=== PATIENT | male | born 1980 | race Caucasian/White ===

== ENCOUNTER 2022-10-13 12:34 | Inpatient (IN) | payer OTHER ==
[2022-10-13 13:47] VITALS: BMI 26.5
[2022-10-13] MEDS ORDERED: IBUPROFEN 600 MG TABLET (FP) PO PRN (15:10)
[2022-10-13] MEDS ORDERED: POLYETHYLENE GLYCOL (HEALTHYLAX) 3350 17 GM PACKET PO PRN (15:10)
[2022-10-13] MEDS ORDERED: MAG HYDROX/AL HYDROX/SIMETH 30 ML UNIT-DOSE CUP PO PRN (15:10)
[2022-10-13] MEDS ORDERED: MAGNESIUM HYDROX 2400MG/30ML ORAL SUSPENSION 30 ML CUP PO PRN (15:10)
[2022-10-13] MEDS ORDERED: METHOCARBAMOL 500 MG TABLET PO PRN (15:10)
[2022-10-13] MEDS ORDERED: IBUPROFEN 400 MG TABLET (FP) PO PRN (15:10)
[2022-10-13] MEDS ORDERED: LOPERAMIDE HCL 2 MG CAPSULE PO PRN (15:10)
[2022-10-13] MEDS ORDERED: BISMUTH SUBSALICYLATE 262 MG/15 ML BTL PO PRN (15:10)
[2022-10-13] MEDS ORDERED: ACETAMINOPHEN 325 MG TABLET (FP) PO PRN ×2 (15:10)
[2022-10-13] MEDS ORDERED: NALOXONE HCL (KLOXXADO) 8 MG SPRAY NS PRN (15:10)
[2022-10-13] MEDS ORDERED: BENZOCAINE/MENTHOL (CHLORASEPTIC ) LOZENGE MM PRN (15:10)
[2022-10-13] MEDS ORDERED: ONDANSETRON *ODT* 4 MG TABLET SL PRN (15:10)
[2022-10-13] MEDS ORDERED: DICYCLOMINE HCL 10 MG CAPSULE PO PRN (15:10)
[2022-10-13] MEDS ORDERED: MELATONIN 5 MG TABLETS PO SCH (22:00)
[2022-10-13] MEDS ORDERED: THIAMINE HCL 100 MG TABLET (FP) PO SCH (22:00)
[2022-10-14 11:58] LABS: HEMATOCRIT 44.4 % (35.4-49); HEMOGLOBIN 14.6 GM/dL (11.7-16.9); MCH 29.9 pg (25.7-33.7); MCHC 32.9 g/dl (32.0-35.9); MEAN CELL VOLUME 90.7 fl (80-96); MEAN PLT VOLUME 9.6 fl (7.5-11.1); PLATELET COUNT 186 10^3/uL (134-434); RBC 4.89 M/mm3 (4.00-5.60); RDW 13.7 % (11.9-15.9); WHITE BLOOD COUNT 5.2 K/mm3 (4.0-10.0)
[2022-10-14 12:01] LABS: CALCIUM 8.7 mg/dL (8.5-10.1)
[2022-10-14 12:02] LABS: ALBUMIN 3.6 g/dl (3.4-5.0); BLOOD UREA NITROGEN 12.4 mg/dL (7-18)
[2022-10-14 12:05] LABS: CREATININE 1.2 mg/dL (0.55-1.3)
[2022-10-14 12:06] LABS: BILIRUBIN,TOTAL 0.7 mg/dL (0.2-1)
[2022-10-14 12:07] LABS: TOT PROT 6.8 g/dl (6.4-8.2)
[2022-10-14 13:14] VITALS: BP 132/85; PULSE 84; RESP 16; TEMP 96.9
== END 2022-10-14 14:10 | disposition home or self-care (01) | DRG 774 ==
LOC: YASAS 12:34 → Y3N 15:48
PROVIDERS: ADMIT Allergy & Immunology; ATTEND Family Medicine
PROC: HZ2ZZZZ Detoxification Services for Substance Abuse Treatment (ICD-10-PCS; principal; 2022-10-13)
DX: F14.20 Cocaine dependence, uncomplicated (principal); F10.20 Alcohol dependence, uncomplicated
CPT/HCPCS: 36415; 80053; 85027; 86780; C9803-CS; U0003; U0005

== ENCOUNTER 2022-10-14 14:18 | Inpatient (IN) | payer OTHER ==
[2022-10-14] MEDS ORDERED: BENZOCAINE/MENTHOL (CHLORASEPTIC ) LOZENGE MM PRN (14:54)
[2022-10-14] MEDS ORDERED: ACETAMINOPHEN 325 MG TABLET (FP) PO PRN (14:54)
[2022-10-14] MEDS ORDERED: LOPERAMIDE HCL 2 MG CAPSULE PO PRN (14:54)
[2022-10-14] MEDS ORDERED: IBUPROFEN 400 MG TABLET (FP) PO PRN (14:54)
[2022-10-14] MEDS ORDERED: hydrOXYzine PAMOATE 25 MG CAPSULE (FP) PO PRN (14:54)
[2022-10-14] MEDS ORDERED: POLYETHYLENE GLYCOL (HEALTHYLAX) 3350 17 GM PACKET PO PRN (14:54)
[2022-10-14] MEDS ORDERED: P-EPHED 60MG/TRIPROLIDI 2.5MG TABLET PO PRN (14:54)
[2022-10-14] MEDS ORDERED: MAGNESIUM HYDROX 2400MG/30ML ORAL SUSPENSION 30 ML CUP PO PRN (14:54)
[2022-10-14] MEDS ORDERED: NICOTINE 10 MG CARTRIDGE (INHALER) IH PRN (14:54)
[2022-10-14] MEDS ORDERED: guaiFENesin 200 MG/10 ML 10 ML UNIT-DOSE CUPS PO PRN (14:54)
[2022-10-14] MEDS: THIAMINE HCL 100 MG TABLET (FP) PO SCH (21:33)
[2022-10-14] MEDS: MELATONIN 5 MG TABLETS PO SCH (21:33)
[2022-10-15] MEDS: PRENATAL VITAMINS W/ FOLIC ACID TABLET (FP) PO SCH (09:56)
[2022-10-15] MEDS: NICOTINE 7 MG/24 HOURS TOPICAL PATCH TD SCH (09:57)
[2022-10-15] MEDS: THIAMINE HCL 100 MG TABLET (FP) PO SCH (21:13)
[2022-10-15] MEDS: MELATONIN 5 MG TABLETS PO SCH (21:14)
[2022-10-16] MEDS: PRENATAL VITAMINS W/ FOLIC ACID TABLET (FP) PO SCH (09:28)
[2022-10-16] MEDS: NICOTINE 7 MG/24 HOURS TOPICAL PATCH TD SCH (09:28)
[2022-10-16] MEDS: THIAMINE HCL 100 MG TABLET (FP) PO SCH (21:26)
[2022-10-16] MEDS: MELATONIN 5 MG TABLETS PO SCH (21:26)
[2022-10-17] MEDS ORDERED: NICOTINE 7 MG/24 HOURS TOPICAL PATCH TD PRN (09:28)
[2022-10-17] MEDS: PRENATAL VITAMINS W/ FOLIC ACID TABLET (FP) PO SCH (10:19)
[2022-10-17 15:02] LABS: HIV INTERPRETATION NEGATIVE (NEGATIVE)
[2022-10-17] MEDS ORDERED: DOCUSATE SODIUM 100 MG CAPSULE (FP) PO PRN (15:02)
[2022-10-17] MEDS: HYDROCORTISONE 2.5% TOPICAL CREAM 30 GM TUBE RC SCH (21:41)
[2022-10-17] MEDS: MELATONIN 5 MG TABLETS PO SCH (21:42)
[2022-10-17] MEDS: THIAMINE HCL 100 MG TABLET (FP) PO SCH (21:42)
[2022-10-18] MEDS: PRENATAL VITAMINS W/ FOLIC ACID TABLET (FP) PO SCH (09:49)
[2022-10-18] MEDS: HYDROCORTISONE 2.5% TOPICAL CREAM 30 GM TUBE RC SCH (09:50)
[2022-10-18] MEDS: MELATONIN 5 MG TABLETS PO SCH (22:27)
[2022-10-18] MEDS: THIAMINE HCL 100 MG TABLET (FP) PO SCH (22:27)
[2022-10-19] MEDS: PRENATAL VITAMINS W/ FOLIC ACID TABLET (FP) PO SCH (09:59)
[2022-10-19] MEDS: HYDROCORTISONE 2.5% TOPICAL CREAM 30 GM TUBE RC SCH (09:59)
[2022-10-19] MEDS: THIAMINE HCL 100 MG TABLET (FP) PO SCH (22:11)
[2022-10-19] MEDS: MELATONIN 5 MG TABLETS PO SCH (22:11)
[2022-10-20] MEDS: PRENATAL VITAMINS W/ FOLIC ACID TABLET (FP) PO SCH (09:30)
[2022-10-20] MEDS: HYDROCORTISONE 2.5% TOPICAL CREAM 30 GM TUBE RC SCH (09:31)
[2022-10-20] MEDS: MAG HYDROX/AL HYDROX/SIMETH 30 ML UNIT-DOSE CUP PO PRN (19:09)
[2022-10-20] MEDS: THIAMINE HCL 100 MG TABLET (FP) PO SCH (21:32)
[2022-10-20] MEDS: MELATONIN 5 MG TABLETS PO SCH (21:32)
[2022-10-21] MEDS: HYDROCORTISONE 2.5% TOPICAL CREAM 30 GM TUBE RC SCH (09:58)
[2022-10-21] MEDS: PRENATAL VITAMINS W/ FOLIC ACID TABLET (FP) PO SCH (09:58)
[2022-10-21] MEDS: THIAMINE HCL 100 MG TABLET (FP) PO SCH (21:31)
[2022-10-21] MEDS: MELATONIN 5 MG TABLETS PO SCH (21:31)
[2022-10-21] MEDS: MAG HYDROX/AL HYDROX/SIMETH 30 ML UNIT-DOSE CUP PO PRN (21:33)
[2022-10-22] MEDS: PRENATAL VITAMINS W/ FOLIC ACID TABLET (FP) PO SCH (09:53)
[2022-10-22] MEDS: HYDROCORTISONE 2.5% TOPICAL CREAM 30 GM TUBE RC SCH (09:53)
[2022-10-22] MEDS: MELATONIN 5 MG TABLETS PO SCH (22:18)
[2022-10-22] MEDS: THIAMINE HCL 100 MG TABLET (FP) PO SCH (22:18)
[2022-10-23] MEDS: PRENATAL VITAMINS W/ FOLIC ACID TABLET (FP) PO SCH (10:13)
[2022-10-23] MEDS: HYDROCORTISONE 2.5% TOPICAL CREAM 30 GM TUBE RC SCH (10:13)
[2022-10-23] MEDS: THIAMINE HCL 100 MG TABLET (FP) PO SCH (22:39)
[2022-10-23] MEDS: MELATONIN 5 MG TABLETS PO SCH (22:39)
[2022-10-24] MEDS: HYDROCORTISONE 2.5% TOPICAL CREAM 30 GM TUBE RC SCH (09:51)
[2022-10-24] MEDS: PRENATAL VITAMINS W/ FOLIC ACID TABLET (FP) PO SCH (09:52)
[2022-10-24] MEDS: THIAMINE HCL 100 MG TABLET (FP) PO SCH (21:30)
[2022-10-24] MEDS: MELATONIN 5 MG TABLETS PO SCH (21:30)
[2022-10-25] MEDS: PRENATAL VITAMINS W/ FOLIC ACID TABLET (FP) PO SCH (09:49)
[2022-10-25] MEDS: HYDROCORTISONE 2.5% TOPICAL CREAM 30 GM TUBE RC SCH (10:29)
[2022-10-25] MEDS: THIAMINE HCL 100 MG TABLET (FP) PO SCH (21:27)
[2022-10-25] MEDS: MELATONIN 5 MG TABLETS PO SCH (21:27)
[2022-10-26] MEDS: PRENATAL VITAMINS W/ FOLIC ACID TABLET (FP) PO SCH (09:51)
[2022-10-26] MEDS: HYDROCORTISONE 2.5% TOPICAL CREAM 30 GM TUBE RC SCH (09:52)
[2022-10-26] MEDS: MELATONIN 5 MG TABLETS PO SCH (21:18)
[2022-10-26] MEDS: THIAMINE HCL 100 MG TABLET (FP) PO SCH (21:18)
[2022-10-27] MEDS: HYDROCORTISONE 2.5% TOPICAL CREAM 30 GM TUBE RC SCH (09:37)
[2022-10-27] MEDS: PRENATAL VITAMINS W/ FOLIC ACID TABLET (FP) PO SCH (09:37)
[2022-10-27] MEDS: MELATONIN 5 MG TABLETS PO SCH (21:26)
[2022-10-27] MEDS: THIAMINE HCL 100 MG TABLET (FP) PO SCH (21:26)
[2022-10-28] MEDS: HYDROCORTISONE 2.5% TOPICAL CREAM 30 GM TUBE RC SCH (10:05)
[2022-10-28] MEDS: PRENATAL VITAMINS W/ FOLIC ACID TABLET (FP) PO SCH (10:05)
[2022-10-28] MEDS: THIAMINE HCL 100 MG TABLET (FP) PO SCH (21:56)
[2022-10-28] MEDS: MELATONIN 5 MG TABLETS PO SCH (21:56)
[2022-10-29] MEDS: PRENATAL VITAMINS W/ FOLIC ACID TABLET (FP) PO SCH (10:14)
[2022-10-29] MEDS: HYDROCORTISONE 2.5% TOPICAL CREAM 30 GM TUBE RC SCH (10:14)
[2022-10-29] MEDS: MAG HYDROX/AL HYDROX/SIMETH 30 ML UNIT-DOSE CUP PO PRN (15:07)
[2022-10-29] MEDS: THIAMINE HCL 100 MG TABLET (FP) PO SCH (21:34)
[2022-10-29] MEDS: MELATONIN 5 MG TABLETS PO SCH (21:34)
[2022-10-30] MEDS: PRENATAL VITAMINS W/ FOLIC ACID TABLET (FP) PO SCH (10:51)
[2022-10-30] MEDS: HYDROCORTISONE 2.5% TOPICAL CREAM 30 GM TUBE RC SCH (10:52)
[2022-10-30] MEDS: MAG HYDROX/AL HYDROX/SIMETH 30 ML UNIT-DOSE CUP PO PRN (13:29)
[2022-10-30] MEDS: THIAMINE HCL 100 MG TABLET (FP) PO SCH (21:54)
[2022-10-30] MEDS: MELATONIN 5 MG TABLETS PO SCH (21:54)
[2022-10-31] MEDS: PRENATAL VITAMINS W/ FOLIC ACID TABLET (FP) PO SCH (10:46)
[2022-10-31] MEDS: HYDROCORTISONE 2.5% TOPICAL CREAM 30 GM TUBE RC SCH (10:46)
[2022-10-31] MEDS: MAG HYDROX/AL HYDROX/SIMETH 30 ML UNIT-DOSE CUP PO PRN (13:58)
[2022-10-31] MEDS: THIAMINE HCL 100 MG TABLET (FP) PO SCH (21:45)
[2022-10-31] MEDS: MELATONIN 5 MG TABLETS PO SCH (21:45)
[2022-11-01] MEDS: HYDROCORTISONE 2.5% TOPICAL CREAM 30 GM TUBE RC SCH (09:47)
[2022-11-01] MEDS: PRENATAL VITAMINS W/ FOLIC ACID TABLET (FP) PO SCH (09:47)
[2022-11-01] MEDS: MELATONIN 5 MG TABLETS PO SCH (21:57)
[2022-11-01] MEDS: THIAMINE HCL 100 MG TABLET (FP) PO SCH (21:57)
[2022-11-02 06:54] VITALS: BP 126/80; PULSE 93; RESP 16; TEMP 98
[2022-11-02] MEDS: PRENATAL VITAMINS W/ FOLIC ACID TABLET (FP) PO SCH (09:04)
[2022-11-02] MEDS: HYDROCORTISONE 2.5% TOPICAL CREAM 30 GM TUBE RC SCH (09:04)
== END 2022-11-02 09:08 | disposition home or self-care (01) | DRG 772 ==
LOC: YASAS 14:18 → Y3E 14:19
PROVIDERS: ADMIT Allergy & Immunology; ATTEND Psychiatry & Neurology Pain Medicine
PROC: HZ42ZZZ Group Counseling for Substance Abuse Treatment, Cognitive-Behavioral (ICD-10-PCS; principal; 2022-10-14)
DX: F10.20 Alcohol dependence, uncomplicated (principal); F14.20 Cocaine dependence, uncomplicated; K59.00 Constipation, unspecified; K64.9 Unspecified hemorrhoids
CPT/HCPCS: 36415; 82962; 87389

== ENCOUNTER 2023-01-17 10:43 | Inpatient (IN) | payer OTHER ==
[2023-01-17 11:23] VITALS: BMI 25.5
[2023-01-17] MEDS ORDERED: BISMUTH SUBSALICYLATE 262 MG/15 ML BTL PO PRN (11:57)
[2023-01-17] MEDS ORDERED: hydrOXYzine PAMOATE 25 MG CAPSULE (FP) PO PRN (11:57)
[2023-01-17] MEDS ORDERED: ONDANSETRON *ODT* 4 MG TABLET SL PRN (11:57)
[2023-01-17] MEDS ORDERED: LOPERAMIDE HCL 2 MG CAPSULE PO PRN (11:57)
[2023-01-17] MEDS ORDERED: POLYETHYLENE GLYCOL (HEALTHYLAX) 3350 17 GM PACKET PO PRN (11:57)
[2023-01-17] MEDS ORDERED: DICYCLOMINE HCL 10 MG CAPSULE PO PRN (11:57)
[2023-01-17] MEDS ORDERED: BENZONATATE 200 MG CAPSULE PO PRN (11:57)
[2023-01-17] MEDS ORDERED: ACETAMINOPHEN 325 MG TABLET (FP) PO PRN (11:57)
[2023-01-17] MEDS ORDERED: IBUPROFEN 400 MG TABLET (FP) PO PRN (11:57)
[2023-01-17] MEDS ORDERED: guaiFENesin 600 MG TABLET.ER (FP) PO PRN (11:57)
[2023-01-17] MEDS ORDERED: MAG HYDROX/AL HYDROX/SIMETH 30 ML UNIT-DOSE CUP PO PRN (11:57)
[2023-01-17] MEDS ORDERED: MAGNESIUM HYDROX 2400MG/30ML ORAL SUSPENSION 30 ML CUP PO PRN (11:57)
[2023-01-17] MEDS ORDERED: METHOCARBAMOL 500 MG TABLET PO PRN (11:57)
[2023-01-17] MEDS ORDERED: IBUPROFEN 600 MG TABLET (FP) PO PRN (11:57)
[2023-01-17] MEDS ORDERED: BENZOCAINE/MENTHOL (CHLORASEPTIC ) LOZENGE MM PRN (11:57)
[2023-01-17] MEDS: PRENATAL VITAMINS W/ FOLIC ACID TABLET (FP) PO SCH (12:36)
[2023-01-17] MEDS ORDERED: PRENATAL VITAMINS W/ FOLIC ACID TABLET (FP) PO ONE (12:53)
[2023-01-17 18:07] LABS: HEMATOCRIT 44.8 % (35.4-49); HEMOGLOBIN 15.7 GM/dL (11.7-16.9); MCH 30.8 pg (25.7-33.7); MCHC 35.1 g/dl (32.0-35.9); MEAN CELL VOLUME 87.7 fl (80-96); MEAN PLT VOLUME 9.3 fl (7.5-11.1); PLATELET COUNT 193 10^3/uL (134-434); RDW 13.6 % (11.9-15.9); WHITE BLOOD COUNT 7.2 K/mm3 (4.0-10.0)
[2023-01-17 18:12] LABS: ALBUMIN 3.9 g/dl (3.4-5.0); CALCIUM 9.5 mg/dL (8.5-10.1)
[2023-01-17 18:13] LABS: BLOOD UREA NITROGEN 14.5 mg/dL (7-18)
[2023-01-17 18:17] LABS: TOT PROT 7.5 g/dl (6.4-8.2)
[2023-01-17 18:18] LABS: BILIRUBIN,TOTAL 0.4 mg/dL (0.2-1)
[2023-01-17] MEDS ORDERED: MELATONIN 5 MG TABLETS PO SCH (22:00)
[2023-01-17] MEDS ORDERED: THIAMINE HCL 100 MG TABLET (FP) PO SCH (22:00)
[2023-01-18] MEDS: PRENATAL VITAMINS W/ FOLIC ACID TABLET (FP) PO SCH (10:41)
[2023-01-18 12:25] VITALS: BP 136/84; PULSE 76; RESP 17; TEMP 97.5
== END 2023-01-18 13:56 | disposition other institution (70) | DRG 774 ==
LOC: YASAS 10:43 → Y3N 12:30
PROVIDERS: ADMIT Allergy & Immunology; ATTEND Surgery
PROC: HZ2ZZZZ Detoxification Services for Substance Abuse Treatment (ICD-10-PCS; principal; 2023-01-17)
DX: F10.230 Alcohol dependence with withdrawal, uncomplicated (principal); F14.20 Cocaine dependence, uncomplicated
CPT/HCPCS: 36415; 80053; 85027; 86780; C9803-CS; U0003; U0005

== ENCOUNTER 2023-01-18 14:03 | Inpatient (IN) | payer OTHER ==
[2023-01-18] MEDS ORDERED: BENZONATATE 200 MG CAPSULE PO PRN (15:20)
[2023-01-18] MEDS ORDERED: NALOXONE HCL 0.4 MG/ML VIAL IVPUSH PRN (15:20)
[2023-01-18] MEDS ORDERED: LOPERAMIDE HCL 2 MG CAPSULE PO PRN (15:20)
[2023-01-18] MEDS ORDERED: NALOXONE HCL (KLOXXADO) 8 MG SPRAY NS PRN (15:20)
[2023-01-18] MEDS ORDERED: IBUPROFEN 400 MG TABLET (FP) PO PRN (15:20)
[2023-01-18] MEDS ORDERED: AMMONIUM LACTATE 12% LOTION 225 GM BOTTLE TP PRN (15:20)
[2023-01-18] MEDS ORDERED: MAGNESIUM HYDROX 2400MG/30ML ORAL SUSPENSION 30 ML CUP PO PRN (15:20)
[2023-01-18] MEDS ORDERED: BACLOFEN 10 MG TABLET (FP) PO PRN (15:20)
[2023-01-18] MEDS ORDERED: BENZOCAINE/MENTHOL (CHLORASEPTIC ) LOZENGE MM PRN (15:20)
[2023-01-18] MEDS ORDERED: POLYETHYLENE GLYCOL (HEALTHYLAX) 3350 17 GM PACKET PO PRN (15:20)
[2023-01-18] MEDS ORDERED: ACETAMINOPHEN 325 MG TABLET (FP) PO PRN (15:20)
[2023-01-18] MEDS ORDERED: COLLOIDAL OATMEAL 1 BAR EACH TP PRN (15:20)
[2023-01-18] MEDS ORDERED: MAG HYDROX/AL HYDROX/SIMETH 30 ML UNIT-DOSE CUP PO PRN (15:20)
[2023-01-18] MEDS ORDERED: IBUPROFEN 600 MG TABLET (FP) PO PRN (15:20)
[2023-01-18] MEDS ORDERED: hydrOXYzine PAMOATE 25 MG CAPSULE (FP) PO PRN (15:20)
[2023-01-18] MEDS: guaiFENesin 600 MG TABLET.ER (FP) PO PRN ×2 (15:46→21:27)
[2023-01-18] MEDS ORDERED: NALOXONE (NARCAN) HCL 4 MG/0.1 ML SPRAY NS PRN (15:49)
[2023-01-18] MEDS: THIAMINE HCL 100 MG TABLET (FP) PO SCH (21:25)
[2023-01-18] MEDS: MELATONIN 5 MG TABLETS PO SCH (21:25)
[2023-01-19] MEDS: PRENATAL VITAMINS W/ FOLIC ACID TABLET (FP) PO SCH (09:17)
[2023-01-19] MEDS: MELATONIN 5 MG TABLETS PO SCH (22:45)
[2023-01-19] MEDS: THIAMINE HCL 100 MG TABLET (FP) PO SCH (22:45)
[2023-01-20] MEDS: PRENATAL VITAMINS W/ FOLIC ACID TABLET (FP) PO SCH (09:48)
[2023-01-20] MEDS: guaiFENesin 600 MG TABLET.ER (FP) PO PRN (09:49)
[2023-01-20] MEDS: MELATONIN 5 MG TABLETS PO SCH (22:47)
[2023-01-20] MEDS: THIAMINE HCL 100 MG TABLET (FP) PO SCH (22:47)
[2023-01-21] MEDS: PRENATAL VITAMINS W/ FOLIC ACID TABLET (FP) PO SCH (09:43)
[2023-01-21] MEDS: MELATONIN 5 MG TABLETS PO SCH (21:51)
[2023-01-21] MEDS: THIAMINE HCL 100 MG TABLET (FP) PO SCH (21:51)
[2023-01-22] MEDS: PRENATAL VITAMINS W/ FOLIC ACID TABLET (FP) PO SCH (09:35)
[2023-01-22] MEDS: MELATONIN 5 MG TABLETS PO SCH (21:40)
[2023-01-22] MEDS: THIAMINE HCL 100 MG TABLET (FP) PO SCH (21:40)
[2023-01-23] MEDS: PRENATAL VITAMINS W/ FOLIC ACID TABLET (FP) PO SCH (10:03)
[2023-01-23] MEDS: MELATONIN 5 MG TABLETS PO SCH (21:48)
[2023-01-23] MEDS: THIAMINE HCL 100 MG TABLET (FP) PO SCH (21:48)
[2023-01-24] MEDS: PRENATAL VITAMINS W/ FOLIC ACID TABLET (FP) PO SCH (09:30)
[2023-01-24] MEDS: THIAMINE HCL 100 MG TABLET (FP) PO SCH (21:38)
[2023-01-24] MEDS: MELATONIN 5 MG TABLETS PO SCH (21:38)
[2023-01-25] MEDS: PRENATAL VITAMINS W/ FOLIC ACID TABLET (FP) PO SCH (10:07)
[2023-01-25] MEDS: THIAMINE HCL 100 MG TABLET (FP) PO SCH (22:08)
[2023-01-25] MEDS: MELATONIN 5 MG TABLETS PO SCH (22:08)
[2023-01-26] MEDS: PRENATAL VITAMINS W/ FOLIC ACID TABLET (FP) PO SCH (09:51)
[2023-01-26] MEDS: MELATONIN 5 MG TABLETS PO SCH (21:54)
[2023-01-26] MEDS: THIAMINE HCL 100 MG TABLET (FP) PO SCH (21:54)
[2023-01-27] MEDS: PRENATAL VITAMINS W/ FOLIC ACID TABLET (FP) PO SCH (10:10)
[2023-01-27] MEDS: MELATONIN 5 MG TABLETS PO SCH (21:36)
[2023-01-27] MEDS: THIAMINE HCL 100 MG TABLET (FP) PO SCH (21:36)
[2023-01-28] MEDS: PRENATAL VITAMINS W/ FOLIC ACID TABLET (FP) PO SCH (09:45)
[2023-01-28] MEDS: MELATONIN 5 MG TABLETS PO SCH (21:59)
[2023-01-28] MEDS: THIAMINE HCL 100 MG TABLET (FP) PO SCH (21:59)
[2023-01-29] MEDS: PRENATAL VITAMINS W/ FOLIC ACID TABLET (FP) PO SCH (09:44)
[2023-01-29] MEDS: MELATONIN 5 MG TABLETS PO SCH (21:29)
[2023-01-29] MEDS: THIAMINE HCL 100 MG TABLET (FP) PO SCH (21:29)
[2023-01-30] MEDS: PRENATAL VITAMINS W/ FOLIC ACID TABLET (FP) PO SCH (09:55)
[2023-01-30] MEDS: MELATONIN 5 MG TABLETS PO SCH (21:41)
[2023-01-30] MEDS: THIAMINE HCL 100 MG TABLET (FP) PO SCH (21:41)
[2023-01-31] MEDS: PRENATAL VITAMINS W/ FOLIC ACID TABLET (FP) PO SCH (10:22)
[2023-01-31] MEDS: MELATONIN 5 MG TABLETS PO SCH (21:21)
[2023-01-31] MEDS: THIAMINE HCL 100 MG TABLET (FP) PO SCH (21:21)
[2023-02-01] MEDS: PRENATAL VITAMINS W/ FOLIC ACID TABLET (FP) PO SCH (09:45)
[2023-02-01] MEDS: MELATONIN 5 MG TABLETS PO SCH (21:29)
[2023-02-01] MEDS: THIAMINE HCL 100 MG TABLET (FP) PO SCH (21:29)
[2023-02-02] MEDS: PRENATAL VITAMINS W/ FOLIC ACID TABLET (FP) PO SCH (10:05)
[2023-02-02] MEDS: MELATONIN 5 MG TABLETS PO SCH (21:19)
[2023-02-02] MEDS: THIAMINE HCL 100 MG TABLET (FP) PO SCH (21:19)
[2023-02-03] MEDS: PRENATAL VITAMINS W/ FOLIC ACID TABLET (FP) PO SCH (09:24)
[2023-02-03] MEDS: MELATONIN 5 MG TABLETS PO SCH (21:43)
[2023-02-03] MEDS: THIAMINE HCL 100 MG TABLET (FP) PO SCH (21:43)
[2023-02-04 07:25] VITALS: RESP 18
[2023-02-04] MEDS: PRENATAL VITAMINS W/ FOLIC ACID TABLET (FP) PO SCH (09:51)
[2023-02-04] MEDS: THIAMINE HCL 100 MG TABLET (FP) PO SCH (21:31)
[2023-02-04] MEDS: MELATONIN 5 MG TABLETS PO SCH (21:31)
[2023-02-05] MEDS: PRENATAL VITAMINS W/ FOLIC ACID TABLET (FP) PO SCH (09:41)
[2023-02-05] MEDS: MELATONIN 5 MG TABLETS PO SCH (21:23)
[2023-02-05] MEDS: THIAMINE HCL 100 MG TABLET (FP) PO SCH (21:23)
[2023-02-06] MEDS: PRENATAL VITAMINS W/ FOLIC ACID TABLET (FP) PO SCH (10:25)
[2023-02-06] MEDS: MELATONIN 5 MG TABLETS PO SCH (21:33)
[2023-02-06] MEDS: THIAMINE HCL 100 MG TABLET (FP) PO SCH (21:33)
[2023-02-07 06:53] VITALS: BP 114/75; PULSE 78; TEMP 97
[2023-02-07] MEDS: PRENATAL VITAMINS W/ FOLIC ACID TABLET (FP) PO SCH (09:21)
== END 2023-02-07 09:45 | disposition home or self-care (01) | DRG 772 ==
LOC: YASAS 14:03 → Y3W 14:04 → Y3E 14:06 → Y3W 01-24 10:59 → Y3E 01-24 11:06
PROVIDERS: ADMIT Allergy & Immunology; ATTEND Psychiatry & Neurology Pain Medicine
PROC: HZ42ZZZ Group Counseling for Substance Abuse Treatment, Cognitive-Behavioral (ICD-10-PCS; principal; 2023-01-18)
DX: F14.20 Cocaine dependence, uncomplicated (principal); F10.20 Alcohol dependence, uncomplicated
CPT/HCPCS: 26055; 36415; 86803

== ENCOUNTER 2023-09-12 14:16 | Inpatient (IN) | payer OTHER ==
[2023-09-12 14:36] VITALS: BMI 26.2
[2023-09-12] MEDS ORDERED: BISMUTH SUBSALICYLATE 524 MG/30 ML PO PRN (15:20)
[2023-09-12] MEDS ORDERED: BENZOCAINE/MENTHOL (CHLORASEPTIC ) LOZENGE MM PRN (15:20)
[2023-09-12] MEDS ORDERED: MAGNESIUM HYDROX 2400MG/30ML ORAL SUSPENSION 30 ML CUP PO PRN (15:20)
[2023-09-12] MEDS ORDERED: IBUPROFEN 600 MG TABLET (FP) PO PRN (15:20)
[2023-09-12] MEDS ORDERED: METHOCARBAMOL 500 MG TABLET PO PRN (15:20)
[2023-09-12] MEDS ORDERED: IBUPROFEN 400 MG TABLET (FP) PO PRN (15:20)
[2023-09-12] MEDS ORDERED: ONDANSETRON *ODT* 4 MG TABLET SL PRN (15:20)
[2023-09-12] MEDS ORDERED: POLYETHYLENE GLYCOL (HEALTHYLAX) 3350 17 GM PACKET PO PRN (15:20)
[2023-09-12] MEDS ORDERED: NALOXONE HCL (KLOXXADO) 8 MG SPRAY NS PRN (15:20)
[2023-09-12] MEDS ORDERED: ACETAMINOPHEN 325 MG TABLET (FP) PO PRN (15:20)
[2023-09-12] MEDS ORDERED: MAG HYDROX/AL HYDROX/SIMETH 30 ML UNIT-DOSE CUP PO PRN (15:20)
[2023-09-12] MEDS ORDERED: BENZONATATE 200 MG CAPSULE PO PRN (15:20)
[2023-09-12] MEDS ORDERED: DICYCLOMINE HCL 10 MG CAPSULE PO PRN (15:20)
[2023-09-12] MEDS ORDERED: guaiFENesin 600 MG TABLET.ER (FP) PO PRN (15:20)
[2023-09-12] MEDS ORDERED: LOPERAMIDE HCL 2 MG CAPSULE PO PRN (15:20)
[2023-09-12] MEDS ORDERED: hydrOXYzine PAMOATE 25 MG CAPSULE (FP) PO PRN (15:20)
[2023-09-12] MEDS ORDERED: NALOXONE HCL 0.4 MG/ML VIAL IM PRN (15:20)
[2023-09-12] MEDS: THIAMINE HCL 100 MG TABLET (FP) PO SCH (22:24)
[2023-09-12] MEDS: MELATONIN 5 MG TABLETS PO SCH (22:24)
[2023-09-13] MEDS ORDERED: chlordiazePOXIDE HCL 25 MG CAPSULE PO PRN (09:04)
[2023-09-13] MEDS: chlordiazePOXIDE HCL 25 MG CAPSULE PO SCH ×3 (10:28→22:09)
[2023-09-13] MEDS: PRENATAL VITAMINS W/ FOLIC ACID TABLET (FP) PO SCH (10:28)
[2023-09-13 13:32] LABS: HEMATOCRIT 40.1 % (35.4-49); HEMOGLOBIN 13.3 GM/dL (11.7-16.9); MCH 29.4 pg (25.7-33.7); MCHC 33.3 g/dl (32.0-35.9); MEAN CELL VOLUME 88.3 fl (80-96); MEAN PLT VOLUME 8.7 fl (7.5-11.1); PLATELET COUNT 176 10^3/uL (134-434); RBC 4.54 M/mm3 (4.00-5.60); RDW 14.8 % (11.9-15.9); WHITE BLOOD COUNT 4.8 K/mm3 (4.0-10.0)
[2023-09-13 13:50] LABS: CHLORIDE 109 mmol/L (98-107); POTASSIUM 4.1 mmol/L (3.5-5.1); SODIUM 142 mmol/L (136-145)
[2023-09-13 14:08] LABS: ALBUMIN 3.3 g/dl (3.4-5.0); ANION GAP 5 mmol/L (4-13); BLOOD UREA NITROGEN 12.3 mg/dL (7-18); CALCIUM 8.9 mg/dL (8.5-10.1); CO2 28 mmol/L (21-32); GLUCOSE,RANDOM 113 mg/dL (74-106)
[2023-09-13 14:11] LABS: TOT PROT 6.4 g/dl (6.4-8.2)
[2023-09-13 14:12] LABS: ALK PHOS 65 U/L (45-117); SGOT/AST 22 U/L (15-37); SGPT/ALT 33 U/L (13-61)
[2023-09-13 14:13] LABS: BILIRUBIN,TOTAL 0.3 mg/dL (0.2-1)
[2023-09-13] MEDS: MELATONIN 5 MG TABLETS PO SCH (22:10)
[2023-09-13] MEDS: THIAMINE HCL 100 MG TABLET (FP) PO SCH (22:11)
[2023-09-14] MEDS: chlordiazePOXIDE HCL 25 MG CAPSULE PO SCH ×4 (05:19→22:05)
[2023-09-14] MEDS: PRENATAL VITAMINS W/ FOLIC ACID TABLET (FP) PO SCH (10:09)
[2023-09-14] MEDS: MELATONIN 5 MG TABLETS PO SCH (22:05)
[2023-09-14] MEDS: THIAMINE HCL 100 MG TABLET (FP) PO SCH (22:05)
[2023-09-15] MEDS: chlordiazePOXIDE HCL 25 MG CAPSULE PO SCH ×4 (06:02→22:23)
[2023-09-15] MEDS: PRENATAL VITAMINS W/ FOLIC ACID TABLET (FP) PO SCH (10:09)
[2023-09-15] MEDS: THIAMINE HCL 100 MG TABLET (FP) PO SCH (22:22)
[2023-09-15] MEDS: MELATONIN 5 MG TABLETS PO SCH (22:23)
[2023-09-16] MEDS ORDERED: chlordiazePOXIDE HCL 10 MG CAPSULE PO PRN
[2023-09-16] MEDS: chlordiazePOXIDE HCL 10 MG CAPSULE PO SCH ×4 (05:47→22:13)
[2023-09-16] MEDS: PRENATAL VITAMINS W/ FOLIC ACID TABLET (FP) PO SCH (10:13)
[2023-09-16] MEDS: THIAMINE HCL 100 MG TABLET (FP) PO SCH (22:13)
[2023-09-16] MEDS: MELATONIN 5 MG TABLETS PO SCH (22:13)
[2023-09-17] MEDS: chlordiazePOXIDE HCL 10 MG CAPSULE PO SCH ×2 (06:01→17:34)
[2023-09-17] MEDS: PRENATAL VITAMINS W/ FOLIC ACID TABLET (FP) PO SCH (10:22)
[2023-09-17] MEDS: THIAMINE HCL 100 MG TABLET (FP) PO SCH (22:00)
[2023-09-17] MEDS: MELATONIN 5 MG TABLETS PO SCH (22:00)
[2023-09-18] MEDS ORDERED: chlordiazePOXIDE HCL 10 MG CAPSULE PO ONE (05:00)
[2023-09-18 06:07] VITALS: RESP 18
[2023-09-18 09:16] VITALS: BP 145/72; PULSE 104; TEMP 98.9
[2023-09-18] MEDS: PRENATAL VITAMINS W/ FOLIC ACID TABLET (FP) PO SCH (10:02)
== END 2023-09-18 11:04 | disposition home or self-care (01) | DRG 774 ==
LOC: YASAS 14:16 → Y3N 15:58
PROVIDERS: ADMIT Allergy & Immunology; ATTEND Surgery
PROC: HZ2ZZZZ Detoxification Services for Substance Abuse Treatment (ICD-10-PCS; principal; 2023-09-12)
DX: F10.230 Alcohol dependence with withdrawal, uncomplicated (principal); F14.20 Cocaine dependence, uncomplicated
CPT/HCPCS: 36415; 80053; 80307; 85027; 86780; 87635; 87811

== ENCOUNTER 2023-10-04 11:30 | Inpatient (IN) | payer OTHER ==
[2023-10-04 12:11] VITALS: BMI 25.8
[2023-10-04] MEDS ORDERED: IBUPROFEN 400 MG TABLET (FP) PO PRN (13:16)
[2023-10-04] MEDS ORDERED: LOPERAMIDE HCL 2 MG CAPSULE PO PRN (13:16)
[2023-10-04] MEDS ORDERED: MAGNESIUM HYDROX 2400MG/30ML ORAL SUSPENSION 30 ML CUP PO PRN (13:16)
[2023-10-04] MEDS ORDERED: hydrOXYzine PAMOATE 25 MG CAPSULE (FP) PO PRN (13:16)
[2023-10-04] MEDS ORDERED: NALOXONE HCL (KLOXXADO) 8 MG SPRAY NS PRN (13:16)
[2023-10-04] MEDS ORDERED: MAG HYDROX/AL HYDROX/SIMETH 30 ML UNIT-DOSE CUP PO PRN (13:16)
[2023-10-04] MEDS ORDERED: ACETAMINOPHEN 325 MG TABLET (FP) PO PRN (13:16)
[2023-10-04] MEDS ORDERED: POLYETHYLENE GLYCOL (HEALTHYLAX) 3350 17 GM PACKET PO PRN (13:16)
[2023-10-04] MEDS ORDERED: COLLOIDAL OATMEAL 1 BAR EACH TP PRN (13:16)
[2023-10-04] MEDS ORDERED: BENZONATATE 200 MG CAPSULE PO PRN (13:16)
[2023-10-04] MEDS ORDERED: NALOXONE HCL 0.4 MG/ML VIAL IM PRN (13:16)
[2023-10-04] MEDS: THIAMINE HCL 100 MG TABLET (FP) PO SCH (21:22)
[2023-10-04] MEDS: MELATONIN 5 MG TABLETS PO SCH (21:22)
[2023-10-05] MEDS: PRENATAL VITAMINS W/ FOLIC ACID TABLET (FP) PO SCH (09:33)
[2023-10-05] MEDS: guaiFENesin 600 MG TABLET.ER (FP) PO PRN ×2 (09:33→21:09)
[2023-10-05] MEDS: BENZOCAINE/MENTHOL (CHLORASEPTIC ) LOZENGE MM PRN (09:34)
[2023-10-05] MEDS: IBUPROFEN 600 MG TABLET (FP) PO PRN (09:35)
[2023-10-05 11:44] LABS: HEMOGLOBIN 14.1 GM/dL (11.7-16.9); MCH 29.6 pg (25.7-33.7); MCHC 33.5 g/dl (32.0-35.9); MEAN CELL VOLUME 88.4 fl (80-96); MEAN PLT VOLUME 8.6 fl (7.5-11.1); PLATELET COUNT 201 10^3/uL (134-434); RBC 4.75 M/mm3 (4.00-5.60); RDW 14.8 % (11.9-15.9); WHITE BLOOD COUNT 9.8 K/mm3 (4.0-10.0)
[2023-10-05 11:50] LABS: URINE APPEARANCE CLEAR; URINE BILIRUBIN NEGATIVE (NEGATIVE); URINE COLOR YELLOW; URINE GLUCOSE (UA) NEGATIVE (NEGATIVE); URINE KETONE NEGATIVE (NEGATIVE); URINE LEUK ESTERASE NEGATIVE (NEGATIVE); URINE NITRITE NEGATIVE (NEGATIVE); URINE PROTEIN NEGATIVE (NEGATIVE); URINE UROBILINOGEN 0.2 mg/dL (0.2-1.0)
[2023-10-05 12:36] LABS: BLOOD UREA NITROGEN 12.4 mg/dL (7-18)
[2023-10-05 12:39] LABS: ALBUMIN 3.4 g/dl (3.4-5.0); BILIRUBIN,TOTAL 0.4 mg/dL (0.2-1)
[2023-10-05] MEDS: MELATONIN 5 MG TABLETS PO SCH (21:08)
[2023-10-05] MEDS: THIAMINE HCL 100 MG TABLET (FP) PO SCH (21:08)
[2023-10-06] MEDS: BENZOCAINE/MENTHOL (CHLORASEPTIC ) LOZENGE MM PRN ×3 (06:42→21:08)
[2023-10-06] MEDS: PRENATAL VITAMINS W/ FOLIC ACID TABLET (FP) PO SCH (09:48)
[2023-10-06] MEDS: MELATONIN 5 MG TABLETS PO SCH (21:07)
[2023-10-06] MEDS: THIAMINE HCL 100 MG TABLET (FP) PO SCH (21:07)
[2023-10-07] MEDS: BENZOCAINE/MENTHOL (CHLORASEPTIC ) LOZENGE MM PRN ×2 (07:08→12:25)
[2023-10-07] MEDS: PRENATAL VITAMINS W/ FOLIC ACID TABLET (FP) PO SCH (09:59)
[2023-10-07] MEDS ORDERED: BENZONATATE 200 MG CAPSULE PO PRN (11:29)
[2023-10-07] MEDS: guaiFENesin 600 MG TABLET.ER (FP) PO PRN (12:26)
[2023-10-07] MEDS: THIAMINE HCL 100 MG TABLET (FP) PO SCH (21:17)
[2023-10-07] MEDS: IBUPROFEN 600 MG TABLET (FP) PO PRN (21:17)
[2023-10-07] MEDS: MELATONIN 5 MG TABLETS PO SCH (21:18)
[2023-10-08] MEDS: PRENATAL VITAMINS W/ FOLIC ACID TABLET (FP) PO SCH (09:35)
[2023-10-08] MEDS: BENZOCAINE/MENTHOL (CHLORASEPTIC ) LOZENGE MM PRN (09:35)
[2023-10-08] MEDS: guaiFENesin 600 MG TABLET.ER (FP) PO PRN ×2 (09:35→21:37)
[2023-10-08] MEDS: THIAMINE HCL 100 MG TABLET (FP) PO SCH (21:36)
[2023-10-08] MEDS: MELATONIN 5 MG TABLETS PO SCH (21:36)
[2023-10-09] MEDS: guaiFENesin 600 MG TABLET.ER (FP) PO PRN (10:44)
[2023-10-09] MEDS: PRENATAL VITAMINS W/ FOLIC ACID TABLET (FP) PO SCH (10:44)
[2023-10-09] MEDS: BENZOCAINE/MENTHOL (CHLORASEPTIC ) LOZENGE MM PRN (10:46)
[2023-10-09] MEDS: THIAMINE HCL 100 MG TABLET (FP) PO SCH (21:10)
[2023-10-09] MEDS: MELATONIN 5 MG TABLETS PO SCH (21:10)
[2023-10-10 06:32] VITALS: BP 125/82; PULSE 78; RESP 18; TEMP 98
[2023-10-10] MEDS: PRENATAL VITAMINS W/ FOLIC ACID TABLET (FP) PO SCH (09:40)
[2023-10-10] MEDS ORDERED: SODIUM CHLORIDE NASAL SPRAY 44 ML BOTTLE NS PRN (14:45)
[2023-10-10] MEDS ORDERED: HYDROCORTISONE 2.5% TOPICAL CREAM 30 GM TUBE RC SCH (14:45)
[2023-10-10] MEDS ORDERED: TOLNAFTATE 1% CREAM 15 GM TUBE TP SCH (22:00)
[2023-10-10] MEDS ORDERED: DOCUSATE SODIUM 100 MG CAPSULE (FP) PO SCH (22:00)
[2023-10-10] MEDS ORDERED: BACLOFEN 10 MG TABLET (FP) PO SCH (22:00)
== END 2023-10-10 19:10 | disposition home or self-care (01) | DRG 772 ==
LOC: YASAS 11:30 → Y3E 15:36
PROVIDERS: ADMIT Allergy & Immunology; ATTEND Psychiatry & Neurology Pain Medicine
PROC: HZ42ZZZ Group Counseling for Substance Abuse Treatment, Cognitive-Behavioral (ICD-10-PCS; principal; 2023-10-04)
DX: F10.20 Alcohol dependence, uncomplicated (principal); F14.20 Cocaine dependence, uncomplicated; U07.1 COVID-19; K64.4 Residual hemorrhoidal skin tags; B35.3 Tinea pedis
CPT/HCPCS: 0241U-QW; 36415; 80053; 81003; 85027; 86780; 87635; 93005; 93010

== ENCOUNTER 2023-11-08 12:57 | Inpatient (IN) | payer OTHER ==
[2023-11-08 13:45] VITALS: BMI 27.6
[2023-11-08] MEDS ORDERED: NALOXONE HCL 0.4 MG/ML VIAL IM PRN (15:19)
[2023-11-08] MEDS ORDERED: LOPERAMIDE HCL 2 MG CAPSULE PO PRN (15:19)
[2023-11-08] MEDS ORDERED: MAG HYDROX/AL HYDROX/SIMETH 30 ML UNIT-DOSE CUP PO PRN (15:19)
[2023-11-08] MEDS ORDERED: BENZONATATE 200 MG CAPSULE PO PRN (15:19)
[2023-11-08] MEDS ORDERED: ONDANSETRON *ODT* 4 MG TABLET SL PRN (15:19)
[2023-11-08] MEDS ORDERED: NALOXONE HCL (KLOXXADO) 8 MG SPRAY NS PRN (15:19)
[2023-11-08] MEDS ORDERED: IBUPROFEN 400 MG TABLET (FP) PO PRN (15:19)
[2023-11-08] MEDS ORDERED: BISMUTH SUBSALICYLATE 262 MG/15 ML BTL PO PRN (15:19)
[2023-11-08] MEDS ORDERED: MAGNESIUM HYDROX 2400MG/30ML ORAL SUSPENSION 30 ML CUP PO PRN (15:19)
[2023-11-08] MEDS ORDERED: DICYCLOMINE HCL 10 MG CAPSULE PO PRN (15:19)
[2023-11-08] MEDS ORDERED: guaiFENesin 600 MG TABLET.ER (FP) PO PRN (15:19)
[2023-11-08] MEDS ORDERED: ACETAMINOPHEN 325 MG TABLET (FP) PO PRN (15:19)
[2023-11-08] MEDS ORDERED: IBUPROFEN 600 MG TABLET (FP) PO PRN (15:19)
[2023-11-08] MEDS ORDERED: BENZOCAINE/MENTHOL (CHLORASEPTIC ) LOZENGE MM PRN (15:19)
[2023-11-08] MEDS ORDERED: POLYETHYLENE GLYCOL (HEALTHYLAX) 3350 17 GM PACKET PO PRN (15:19)
[2023-11-08] MEDS: THIAMINE HCL 100 MG TABLET (FP) PO SCH (22:16)
[2023-11-08] MEDS: METHOCARBAMOL 500 MG TABLET PO PRN (22:16)
[2023-11-08] MEDS: MELATONIN 5 MG TABLETS PO SCH (22:16)
[2023-11-08] MEDS: hydrOXYzine PAMOATE 25 MG CAPSULE (FP) PO PRN (22:16)
[2023-11-09] MEDS: PRENATAL VITAMINS W/ FOLIC ACID TABLET (FP) PO SCH (10:30)
[2023-11-09 11:29] LABS: HEMATOCRIT 40.1 % (35.4-49); HEMOGLOBIN 13.5 GM/dL (11.7-16.9); MCH 29.7 pg (25.7-33.7); MCHC 33.8 g/dl (32.0-35.9); MEAN CELL VOLUME 88.1 fl (80-96); MEAN PLT VOLUME 8.6 fl (7.5-11.1); PLATELET COUNT 171 10^3/uL (134-434); RBC 4.55 M/mm3 (4.00-5.60); RDW 14.1 % (11.9-15.9); WHITE BLOOD COUNT 6.6 K/mm3 (4.0-10.0)
[2023-11-09 12:09] LABS: CHLORIDE 106 mmol/L (98-107); POTASSIUM 3.8 mmol/L (3.5-5.1); SODIUM 141 mmol/L (136-145)
[2023-11-09 12:11] LABS: BLOOD UREA NITROGEN 10.2 mg/dL (7-18)
[2023-11-09 12:14] LABS: ALBUMIN 3.4 g/dl (3.4-5.0); ANION GAP 6 mmol/L (4-13); CO2 29 mmol/L (21-32); GLUCOSE,RANDOM 91 mg/dL (74-106)
[2023-11-09 12:16] LABS: CREATININE 0.9 mg/dL (0.55-1.3)
[2023-11-09 12:17] LABS: SGOT/AST 15 U/L (15-37)
[2023-11-09 12:18] LABS: TOT PROT 6.8 g/dl (6.4-8.2)
[2023-11-09 12:21] LABS: SGPT/ALT 28 U/L (13-61)
[2023-11-09 12:25] LABS: BILIRUBIN,TOTAL 0.3 mg/dL (0.2-1)
[2023-11-09 12:26] LABS: ALK PHOS 56 U/L (45-117)
[2023-11-10 17:57] VITALS: BP 120/74; PULSE 86; RESP 18; TEMP 97.5
== END 2023-11-10 17:25 | disposition other institution (70) | DRG 774 ==
LOC: YASAS 12:57 → Y6N 16:34
PROVIDERS: ADMIT Allergy & Immunology; ATTEND Surgery
PROC: HZ2ZZZZ Detoxification Services for Substance Abuse Treatment (ICD-10-PCS; principal; 2023-11-08)
DX: F10.20 Alcohol dependence, uncomplicated (principal); F14.20 Cocaine dependence, uncomplicated
CPT/HCPCS: 36415; 80053; 80305; 80307; 85027; 86780; 87635; 87811; 93005; 93010

== ENCOUNTER 2023-11-10 17:25 | Inpatient (IN) | payer OTHER ==
[2023-11-10] MEDS ORDERED: ACETAMINOPHEN 325 MG TABLET (FP) PO PRN (19:23)
[2023-11-10] MEDS ORDERED: guaiFENesin 600 MG TABLET.ER (FP) PO PRN (19:23)
[2023-11-10] MEDS ORDERED: MAGNESIUM HYDROX 2400MG/30ML ORAL SUSPENSION 30 ML CUP PO PRN (19:23)
[2023-11-10] MEDS ORDERED: LOPERAMIDE HCL 2 MG CAPSULE PO PRN (19:23)
[2023-11-10] MEDS ORDERED: IBUPROFEN 400 MG TABLET (FP) PO PRN (19:23)
[2023-11-10] MEDS ORDERED: BENZONATATE 200 MG CAPSULE PO PRN (19:23)
[2023-11-10] MEDS ORDERED: DOCUSATE SODIUM 100 MG CAPSULE (FP) PO PRN (19:23)
[2023-11-10] MEDS ORDERED: POLYETHYLENE GLYCOL (HEALTHYLAX) 3350 17 GM PACKET PO PRN (19:23)
[2023-11-10] MEDS ORDERED: MAG HYDROX/AL HYDROX/SIMETH 30 ML UNIT-DOSE CUP PO PRN (19:23)
[2023-11-10] MEDS ORDERED: BENZOCAINE/MENTHOL (CHLORASEPTIC ) LOZENGE MM PRN (19:23)
[2023-11-10] MEDS ORDERED: P-EPHED 60MG/TRIPROLIDI 2.5MG TABLET PO PRN (19:23)
[2023-11-10] MEDS: MELATONIN 5 MG TABLETS PO SCH (21:17)
[2023-11-10] MEDS: METHOCARBAMOL 500 MG TABLET PO PRN (21:17)
[2023-11-10] MEDS: THIAMINE HCL 100 MG TABLET (FP) PO SCH (21:17)
[2023-11-11] MEDS: PRENATAL VITAMINS W/ FOLIC ACID TABLET (FP) PO SCH (10:07)
[2023-11-11] MEDS: hydrOXYzine PAMOATE 25 MG CAPSULE (FP) PO PRN (21:30)
[2023-11-13] MEDS ORDERED: TUBERCULIN PPD 5 TU/0.1ML VIAL ID ONE (09:57)
[2023-11-19] MEDS: IBUPROFEN 600 MG TABLET (FP) PO PRN (06:25)
[2023-11-23 07:19] VITALS: PULSE 68; RESP 18
[2023-11-24 07:01] VITALS: BP 152/88; TEMP 97.7
== END 2023-11-24 09:40 | disposition home or self-care (01) | DRG 772 ==
LOC: YASAS 17:25 → Y5N 17:45
PROVIDERS: ADMIT Allergy & Immunology; ATTEND Psychiatry & Neurology Pain Medicine
PROC: HZ42ZZZ Group Counseling for Substance Abuse Treatment, Cognitive-Behavioral (ICD-10-PCS; principal; 2023-11-10)
DX: F14.20 Cocaine dependence, uncomplicated (principal); F10.20 Alcohol dependence, uncomplicated

== ENCOUNTER 2023-12-11 13:01 | Inpatient (IN) | payer OTHER ==
[2023-12-11 14:01] VITALS: BMI 26.5
[2023-12-11] MEDS ORDERED: guaiFENesin 600 MG TABLET.ER (FP) PO PRN (17:28)
[2023-12-11] MEDS ORDERED: IBUPROFEN 400 MG TABLET (FP) PO PRN (17:28)
[2023-12-11] MEDS ORDERED: MAGNESIUM HYDROX 2400MG/30ML ORAL SUSPENSION 30 ML CUP PO PRN (17:28)
[2023-12-11] MEDS ORDERED: ONDANSETRON *ODT* 4 MG TABLET SL PRN (17:28)
[2023-12-11] MEDS ORDERED: LOPERAMIDE HCL 2 MG CAPSULE PO PRN (17:28)
[2023-12-11] MEDS ORDERED: DICYCLOMINE HCL 10 MG CAPSULE PO PRN (17:28)
[2023-12-11] MEDS ORDERED: BENZONATATE 200 MG CAPSULE PO PRN (17:28)
[2023-12-11] MEDS ORDERED: ACETAMINOPHEN 325 MG TABLET (FP) PO PRN (17:28)
[2023-12-11] MEDS ORDERED: IBUPROFEN 600 MG TABLET (FP) PO PRN (17:28)
[2023-12-11] MEDS ORDERED: BISMUTH SUBSALICYLATE 524 MG/30 ML PO PRN (17:28)
[2023-12-11] MEDS ORDERED: POLYETHYLENE GLYCOL (HEALTHYLAX) 3350 17 GM PACKET PO PRN (17:28)
[2023-12-11] MEDS ORDERED: BENZOCAINE/MENTHOL (CHLORASEPTIC ) LOZENGE MM PRN (17:28)
[2023-12-11] MEDS ORDERED: MAG HYDROX/AL HYDROX/SIMETH 30 ML UNIT-DOSE CUP PO PRN (17:28)
[2023-12-11] MEDS: hydrOXYzine PAMOATE 25 MG CAPSULE (FP) PO PRN (19:41)
[2023-12-11] MEDS: METHOCARBAMOL 500 MG TABLET PO PRN (19:41)
[2023-12-11] MEDS ORDERED: chlordiazePOXIDE HCL 25 MG CAPSULE PO PRN (21:04)
[2023-12-11] MEDS: MELATONIN 5 MG TABLETS PO SCH (22:36)
[2023-12-11] MEDS: THIAMINE HCL 100 MG TABLET (FP) PO SCH (22:36)
[2023-12-11] MEDS: chlordiazePOXIDE HCL 25 MG CAPSULE PO SCH (22:36)
[2023-12-12] MEDS: PRENATAL VITAMINS W/ FOLIC ACID TABLET (FP) PO SCH (10:04)
[2023-12-12 13:08] LABS: HEMOGLOBIN 14.6 GM/dL (11.7-16.9); MCH 29.9 pg (25.7-33.7); MEAN CELL VOLUME 87.8 fl (80-96); MEAN PLT VOLUME 8.6 fl (7.5-11.1); PLATELET COUNT 194 10^3/uL (134-434)
[2023-12-13] MEDS ORDERED: chlordiazePOXIDE HCL 25 MG CAPSULE PO SCH (05:00)
[2023-12-13] MEDS: chlordiazePOXIDE HCL 10 MG CAPSULE PO SCH (05:44)
[2023-12-14] MEDS: chlordiazePOXIDE HCL 10 MG CAPSULE PO SCH (05:38)
[2023-12-14] MEDS ORDERED: chlordiazePOXIDE HCL 10 MG CAPSULE PO PRN ×2 (12:37)
[2023-12-14 23:27] VITALS: TEMP 97.6
[2023-12-15] MEDS: chlordiazePOXIDE HCL 10 MG CAPSULE PO ONE (05:11)
[2023-12-15 07:05] VITALS: BP 140/68; PULSE 72; RESP 17
== END 2023-12-15 10:03 | disposition home or self-care (01) | DRG 774 ==
LOC: YASAS 13:01 → Y6N 18:13
PROVIDERS: ADMIT Allergy & Immunology; ATTEND Surgery
PROC: HZ2ZZZZ Detoxification Services for Substance Abuse Treatment (ICD-10-PCS; principal; 2023-12-11)
DX: F10.230 Alcohol dependence with withdrawal, uncomplicated (principal); F14.10 Cocaine abuse, uncomplicated
CPT/HCPCS: 36415; 80305; 85027; 87635

== ENCOUNTER 2023-12-18 13:47 | Inpatient (IN) | payer OTHER ==
[2023-12-18 14:36] VITALS: BMI 27.2
[2023-12-18] MEDS ORDERED: IBUPROFEN 400 MG TABLET (FP) PO PRN (16:45)
[2023-12-18] MEDS ORDERED: POLYETHYLENE GLYCOL (HEALTHYLAX) 3350 17 GM PACKET PO PRN (16:45)
[2023-12-18] MEDS ORDERED: NALOXONE HCL (KLOXXADO) 8 MG SPRAY NS PRN (16:45)
[2023-12-18] MEDS ORDERED: LOPERAMIDE HCL 2 MG CAPSULE PO PRN (16:45)
[2023-12-18] MEDS ORDERED: guaiFENesin 600 MG TABLET.ER (FP) PO PRN (16:45)
[2023-12-18] MEDS ORDERED: BENZONATATE 200 MG CAPSULE PO PRN (16:45)
[2023-12-18] MEDS ORDERED: NALOXONE HCL 0.4 MG/ML VIAL IM PRN (16:45)
[2023-12-18] MEDS ORDERED: MAG HYDROX/AL HYDROX/SIMETH 30 ML UNIT-DOSE CUP PO PRN (16:45)
[2023-12-18 20:55] LABS: URINE APPEARANCE CLEAR; URINE BILIRUBIN NEGATIVE (NEGATIVE); URINE COLOR YELLOW; URINE GLUCOSE (UA) NEGATIVE (NEGATIVE); URINE KETONE NEGATIVE (NEGATIVE); URINE LEUK ESTERASE NEGATIVE (NEGATIVE); URINE NITRITE NEGATIVE (NEGATIVE); URINE PROTEIN NEGATIVE (NEGATIVE)
[2023-12-18] MEDS: hydrOXYzine PAMOATE 25 MG CAPSULE (FP) PO PRN (22:01)
[2023-12-18] MEDS: MELATONIN 5 MG TABLETS PO SCH (22:01)
[2023-12-18] MEDS: THIAMINE HCL 100 MG TABLET (FP) PO SCH (22:02)
[2023-12-18] MEDS: METHOCARBAMOL 500 MG TABLET PO PRN (22:12)
[2023-12-19] MEDS: PRENATAL VITAMINS W/ FOLIC ACID TABLET (FP) PO SCH (09:17)
[2023-12-19] MEDS: IBUPROFEN 600 MG TABLET (FP) PO PRN (09:17)
[2023-12-19 12:00] LABS: HEMATOCRIT 41.5 % (35.4-49); HEMOGLOBIN 14.2 GM/dL (11.7-16.9); MCHC 34.1 g/dl (32.0-35.9); MEAN CELL VOLUME 87.7 fl (80-96); MEAN PLT VOLUME 8.1 fl (7.5-11.1); PLATELET COUNT 213 10^3/uL (134-434); RBC 4.73 M/mm3 (4.00-5.60); RDW 14.4 % (11.9-15.9); WHITE BLOOD COUNT 5.9 K/mm3 (4.0-10.0)
[2023-12-19 12:16] LABS: CHLORIDE 106 mmol/L (98-107); POTASSIUM 4.3 mmol/L (3.5-5.1); SODIUM 141 mmol/L (136-145)
[2023-12-19 12:29] LABS: CALCIUM 8.3 mg/dL (8.5-10.1)
[2023-12-19 12:30] LABS: ALBUMIN 3.3 g/dl (3.4-5.0); ANION GAP 7 mmol/L (4-13); CO2 28 mmol/L (21-32); GLUCOSE,RANDOM 101 mg/dL (74-106)
[2023-12-19 12:33] LABS: CREATININE 0.9 mg/dL (0.55-1.3); SGOT/AST 23 U/L (15-37)
[2023-12-19 12:34] LABS: SGPT/ALT 32 U/L (13-61)
[2023-12-19 12:35] LABS: BILIRUBIN,TOTAL 0.3 mg/dL (0.2-1); TOT PROT 6.6 g/dl (6.4-8.2)
[2023-12-19 12:36] LABS: ALK PHOS 71 U/L (45-117)
[2023-12-20] MEDS: MAGNESIUM HYDROX 2400MG/30ML ORAL SUSPENSION 30 ML CUP PO PRN (15:45)
[2023-12-23] MEDS: ACETAMINOPHEN 325 MG TABLET (FP) PO PRN (21:41)
[2023-12-23] MEDS: METHOCARBAMOL 500 MG TABLET PO PRN (21:42)
[2023-12-25 07:19] VITALS: TEMP 97.7
[2023-12-25 09:09] VITALS: BP 127/65; PULSE 16; RESP 86
[2023-12-25] MEDS ORDERED: guaiFENesin 200 MG/10 ML 10 ML UNIT-DOSE CUPS PO PRN (11:41)
[2023-12-25] MEDS: P-EPHED 60MG/TRIPROLIDI 2.5MG TABLET PO PRN (13:05)
[2023-12-25] MEDS: BENZOCAINE/MENTHOL (CHLORASEPTIC ) LOZENGE MM PRN (13:05)
== END 2023-12-25 13:44 | disposition left against medical advice (07) | DRG 770 ==
LOC: YASAS 13:47 → Y3NR 17:27 → Y3W 12-19 12:43
PROVIDERS: ADMIT Allergy & Immunology; ATTEND Psychiatry & Neurology Pain Medicine
PROC: HZ42ZZZ Group Counseling for Substance Abuse Treatment, Cognitive-Behavioral (ICD-10-PCS; principal; 2023-12-18)
DX: F10.20 Alcohol dependence, uncomplicated (principal); F14.20 Cocaine dependence, uncomplicated; F13.20 Sedative, hypnotic or anxiolytic dependence, uncomplicated; J34.89 Other specified disorders of nose and nasal sinuses; M79.10 Myalgia, unspecified site
CPT/HCPCS: 0241U-QW; 36415; 80053; 80307; 81003; 85027; 86780; 87651

== ENCOUNTER 2024-03-05 15:46 | Inpatient (IN) | payer OTHER ==
[2024-03-05 16:53] VITALS: BMI 26.5
[2024-03-05] MEDS ORDERED: BENZONATATE 200 MG CAPSULE PO PRN (17:31)
[2024-03-05] MEDS ORDERED: MAGNESIUM HYDROX 2400MG/30ML ORAL SUSPENSION 30 ML CUP PO PRN (17:31)
[2024-03-05] MEDS ORDERED: ACETAMINOPHEN 325 MG TABLET (FP) PO PRN (17:31)
[2024-03-05] MEDS ORDERED: POLYETHYLENE GLYCOL (HEALTHYLAX) 3350 17 GM PACKET PO PRN (17:31)
[2024-03-05] MEDS ORDERED: IBUPROFEN 400 MG TABLET (FP) PO PRN (17:31)
[2024-03-05] MEDS ORDERED: IBUPROFEN 600 MG TABLET (FP) PO PRN (17:31)
[2024-03-05] MEDS ORDERED: MAG HYDROX/AL HYDROX/SIMETH 30 ML UNIT-DOSE CUP PO PRN (17:31)
[2024-03-05] MEDS ORDERED: BENZOCAINE/MENTHOL (CHLORASEPTIC ) LOZENGE MM PRN (17:31)
[2024-03-05] MEDS ORDERED: hydrOXYzine PAMOATE 25 MG CAPSULE (FP) PO PRN (17:31)
[2024-03-05] MEDS ORDERED: guaiFENesin 600 MG TABLET.ER (FP) PO PRN (17:31)
[2024-03-05] MEDS ORDERED: LOPERAMIDE HCL 2 MG CAPSULE PO PRN (17:31)
[2024-03-05] MEDS: THIAMINE 100 MG TABLET PO SCH (21:42)
[2024-03-05] MEDS: MELATONIN 5 MG TABLETS PO SCH (21:42)
[2024-03-06] MEDS: PRENATAL VITAMINS W/ FOLIC ACID TABLET (FP) PO SCH (09:50)
[2024-03-06 12:36] LABS: HEMATOCRIT 44.6 % (35.4-49); HEMOGLOBIN 15.1 GM/dL (11.7-16.9); MCHC 33.7 g/dl (32.0-35.9); MEAN CELL VOLUME 88.9 fl (80-96); MEAN PLT VOLUME 8.7 fl (7.5-11.1); PLATELET COUNT 217 10^3/uL (134-434); RBC 5.02 M/mm3 (4.00-5.60); RDW 13.7 % (11.9-15.9); WHITE BLOOD COUNT 4.4 K/mm3 (4.0-10.0)
[2024-03-06 18:57] LABS: POTASSIUM 4.5 mmol/L (3.5-5.1)
[2024-03-06 18:59] LABS: CALCIUM 9.3 mg/dL (8.5-10.1)
[2024-03-06 19:00] LABS: ALBUMIN 3.9 g/dl (3.4-5.0); BLOOD UREA NITROGEN 9.8 mg/dL (7-18)
[2024-03-06 19:03] LABS: CREATININE 0.9 mg/dL (0.55-1.3)
[2024-03-06 19:04] LABS: BILIRUBIN,TOTAL 0.4 mg/dL (0.2-1)
[2024-03-06 19:05] LABS: TOT PROT 7.2 g/dl (6.4-8.2)
[2024-03-07 11:43] LABS: PH,URINE 6.5 (5.0-8.0); URINE APPEARANCE CLEAR; URINE BILIRUBIN NEGATIVE (NEGATIVE); URINE COLOR YELLOW; URINE GLUCOSE (UA) NEGATIVE (NEGATIVE); URINE KETONE NEGATIVE (NEGATIVE); URINE LEUK ESTERASE NEGATIVE (NEGATIVE); URINE NITRITE NEGATIVE (NEGATIVE); URINE PROTEIN NEGATIVE (NEGATIVE); URINE UROBILINOGEN 0.2 mg/dL (0.2-1.0)
[2024-03-11 07:34] VITALS: RESP 18
[2024-03-11 16:48] VITALS: BP 137/83; PULSE 84; TEMP 97.8
== END 2024-03-11 18:33 | disposition home or self-care (01) | DRG 772 ==
LOC: YASAS 15:46 → Y3E 18:37
PROVIDERS: ADMIT Allergy & Immunology; ATTEND Psychiatry & Neurology Pain Medicine
PROC: HZ42ZZZ Group Counseling for Substance Abuse Treatment, Cognitive-Behavioral (ICD-10-PCS; principal; 2024-03-05)
DX: F14.20 Cocaine dependence, uncomplicated (principal); F10.20 Alcohol dependence, uncomplicated; F17.210 Nicotine dependence, cigarettes, uncomplicated
CPT/HCPCS: 36415; 80053; 80305; 80307; 81003; 85027; 86780; 86803; 87811

== ENCOUNTER 2024-04-08 12:28 | Inpatient (IN) | payer OTHER ==
[2024-04-08 13:13] VITALS: BMI 25.8
[2024-04-08] MEDS ORDERED: guaiFENesin 600 MG TABLET.ER (FP) PO PRN (13:21)
[2024-04-08] MEDS ORDERED: MAGNESIUM HYDROX 2400MG/30ML ORAL SUSPENSION 30 ML CUP PO PRN (13:21)
[2024-04-08] MEDS ORDERED: IBUPROFEN 400 MG TABLET (FP) PO PRN (13:21)
[2024-04-08] MEDS ORDERED: LOPERAMIDE HCL 2 MG CAPSULE PO PRN (13:21)
[2024-04-08] MEDS ORDERED: ACETAMINOPHEN 325 MG TABLET (FP) PO PRN (13:21)
[2024-04-08] MEDS ORDERED: IBUPROFEN 600 MG TABLET (FP) PO PRN (13:21)
[2024-04-08] MEDS ORDERED: METHOCARBAMOL 500 MG TABLET PO PRN (13:21)
[2024-04-08] MEDS ORDERED: BENZONATATE 200 MG CAPSULE PO PRN (13:21)
[2024-04-08] MEDS ORDERED: POLYETHYLENE GLYCOL (HEALTHYLAX) 3350 17 GM PACKET PO PRN (13:21)
[2024-04-08] MEDS ORDERED: BENZOCAINE/MENTHOL (CHLORASEPTIC ) LOZENGE MM PRN (13:21)
[2024-04-08] MEDS: THIAMINE 100 MG TABLET PO SCH (22:42)
[2024-04-08] MEDS: MELATONIN 5 MG TABLETS PO SCH (22:42)
[2024-04-09 06:46] LABS: PH,URINE 6.5 (5.0-8.0); URINE APPEARANCE CLEAR; URINE BILIRUBIN NEGATIVE (NEGATIVE); URINE COLOR YELLOW; URINE GLUCOSE (UA) NEGATIVE (NEGATIVE); URINE KETONE NEGATIVE (NEGATIVE); URINE LEUK ESTERASE NEGATIVE (NEGATIVE); URINE NITRITE NEGATIVE (NEGATIVE); URINE PROTEIN NEGATIVE (NEGATIVE)
[2024-04-09] MEDS: PRENATAL VITAMINS W/ FOLIC ACID TABLET (FP) PO SCH (09:09)
[2024-04-11] MEDS: MAG HYDROX/AL HYDROX/SIMETH 30 ML UNIT-DOSE CUP PO PRN (21:13)
[2024-04-12] MEDS: hydrOXYzine PAMOATE 25 MG CAPSULE (FP) PO PRN (17:47)
[2024-04-29 06:31] VITALS: BP 117/75; PULSE 74; RESP 18; TEMP 97.6
== END 2024-04-29 09:16 | disposition home or self-care (01) | DRG 772 ==
LOC: YASAS 12:28 → Y3NR 15:52 → Y5N 04-09 12:52
PROVIDERS: ADMIT Allergy & Immunology; ATTEND Psychiatry & Neurology Pain Medicine
PROC: HZ42ZZZ Group Counseling for Substance Abuse Treatment, Cognitive-Behavioral (ICD-10-PCS; principal; 2024-04-08)
DX: F10.20 Alcohol dependence, uncomplicated (principal); F14.20 Cocaine dependence, uncomplicated
CPT/HCPCS: 80305; 80307; 81003; 87811

== ENCOUNTER 2024-07-03 15:54 | Inpatient (IN) | payer OTHER ==
[2024-07-03 16:34] VITALS: BMI 24.5
[2024-07-03] MEDS ORDERED: POLYETHYLENE GLYCOL (HEALTHYLAX) 3350 17 GM PACKET PO PRN (20:27)
[2024-07-03] MEDS ORDERED: BENZOCAINE/MENTHOL (CHLORASEPTIC ) LOZENGE MM PRN (20:27)
[2024-07-03] MEDS ORDERED: IBUPROFEN 400 MG TABLET (FP) PO PRN (20:27)
[2024-07-03] MEDS ORDERED: MAG HYDROX/AL HYDROX/SIMETH 30 ML UNIT-DOSE CUP PO PRN (20:27)
[2024-07-03] MEDS ORDERED: LOPERAMIDE HCL 2 MG CAPSULE PO PRN (20:27)
[2024-07-03] MEDS ORDERED: BENZONATATE 200 MG CAPSULE PO PRN (20:27)
[2024-07-03] MEDS ORDERED: guaiFENesin 600 MG TABLET.ER (FP) PO PRN (20:27)
[2024-07-03] MEDS: IBUPROFEN 600 MG TABLET (FP) PO PRN (22:22)
[2024-07-03] MEDS: MELATONIN 5 MG TABLETS PO SCH (22:22)
[2024-07-03] MEDS: hydrOXYzine PAMOATE 25 MG CAPSULE (FP) PO PRN (22:22)
[2024-07-03] MEDS: THIAMINE 100 MG TABLET PO SCH (22:22)
[2024-07-04] MEDS: PRENATAL VITAMINS W/ FOLIC ACID TABLET (FP) PO SCH (10:12)
[2024-07-04] MEDS: ACETAMINOPHEN 325 MG TABLET (FP) PO PRN (10:13)
[2024-07-04 12:00] LABS: HEMATOCRIT 40.5 % (35.4-49); HEMOGLOBIN 13.7 GM/dL (11.7-16.9); MCH 30.3 pg (25.7-33.7); MCHC 33.8 g/dl (32.0-35.9); MEAN CELL VOLUME 89.4 fl (80-96); MEAN PLT VOLUME 8.9 fl (7.5-11.1); PLATELET COUNT 195 10^3/uL (134-434); RBC 4.53 M/mm3 (4.00-5.60); RDW 13.7 % (11.9-15.9); WHITE BLOOD COUNT 5.1 K/mm3 (4.0-10.0)
[2024-07-04 13:19] LABS: POTASSIUM 4.3 mmol/L (3.5-5.1)
[2024-07-04 13:22] LABS: CALCIUM 8.5 mg/dL (8.5-10.1)
[2024-07-04 13:23] LABS: ALBUMIN 3.4 g/dl (3.4-5.0); BLOOD UREA NITROGEN 15.7 mg/dL (7-18)
[2024-07-04 13:27] LABS: BILIRUBIN,TOTAL 0.3 mg/dL (0.2-1); TOT PROT 6.2 g/dl (6.4-8.2)
[2024-07-06 09:44] LABS: PH,URINE 5.5 (5.0-8.0); URINE APPEARANCE CLEAR; URINE BILIRUBIN NEGATIVE (NEGATIVE); URINE COLOR YELLOW; URINE GLUCOSE (UA) NEGATIVE (NEGATIVE); URINE KETONE NEGATIVE (NEGATIVE); URINE LEUK ESTERASE NEGATIVE (NEGATIVE); URINE NITRITE NEGATIVE (NEGATIVE); URINE PROTEIN NEGATIVE (NEGATIVE); URINE UROBILINOGEN 0.2 mg/dL (0.2-1.0)
[2024-07-11] MEDS: MAGNESIUM HYDROX 2400MG/30ML ORAL SUSPENSION 30 ML CUP PO PRN (19:34)
[2024-07-29 06:50] VITALS: RESP 16
[2024-07-31 06:55] VITALS: BP 137/83; PULSE 69; TEMP 97.7
== END 2024-07-31 09:34 | disposition home or self-care (01) | DRG 772 ==
LOC: YASAS 15:54 → Y3NR 21:53 → Y3W 07-04 10:50
PROVIDERS: ADMIT Allergy & Immunology; ATTEND Psychiatry & Neurology Pain Medicine
PROC: HZ42ZZZ Group Counseling for Substance Abuse Treatment, Cognitive-Behavioral (ICD-10-PCS; principal; 2024-07-03)
DX: F14.20 Cocaine dependence, uncomplicated (principal); M17.12 Unilateral primary osteoarthritis, left knee
CPT/HCPCS: 36415; 80053; 80305; 80307; 81003; 85027; 87811